=== PATIENT | female | born 1980 | race Caucasian/White ===

== ENCOUNTER 2016-06-23 08:48 | Emergency (ER) | payer BC ==
[~2016-06-23] VITALS: Ht 165.1 cm; Wt 82.0 kg
[~2016-06-23 08:48] MED LIST: BCPILLS PO
[2016-06-23 08:50] VITALS: TEMP 36.5; Ht 165.1 cm; Wt 82.0 kg
[2016-06-23] MEDS ORDERED: PROMETHAZINE HCL INJ 12.5 MG in SODIUM CHLORIDE 0.9% 50ML 50 ML IV STA (09:10)
[2016-06-23] MEDS ORDERED: SODIUM CHLORIDE 0.9% 1000ML 1,000 ML IV STA (09:10)
[2016-06-23] MEDS ORDERED: KETOROLAC TROMETHAMINE 30 MG/ML VIAL IV STA (09:10)
[2016-06-23] MEDS ORDERED: ONDANSETRON INJ 2 MG/ML 2 ML VIAL IV STA (09:10)
[2016-06-23] MEDS ORDERED: DEXAMETHASONE SOD INJ 10 MG/ML VIAL IV ONE (09:15)
[2016-06-23] MEDS ORDERED: DiphenhydrAMINE HCL 50 MG/ML VIAL IV STA (10:33)
[2016-06-23] MEDS ORDERED: MoRPHine SULFATE 4 MG/ML 1 ML CARP\\VIAL IV STA (10:33)
[2016-06-23] MEDS ORDERED: ONDA4TAB10 SL (11:16)
[2016-06-23] MEDS ORDERED: PROM25TA9 PO (11:16)
[2016-06-23] MEDS ORDERED: HYDR-5688 PO (11:16)
--- NOTE | 2016-06-23 11:17 | EMERGENCY ROOM VISIT NOTE ---
ED Visit Note First contact with patient: 09:01 CHIEF COMPLAINT: Migraine headache since this morning HISTORY OF PRESENT ILLNESS: Patient is a 35-year-old white female with history of migraine headaches who presents to the emergency department accompanied by her sister for evaluation of a headache that started this morning. She noted that she had a little bit of a visual aura before she went to bed last night, but states that she woke up with a throbbing, generalized headache, with associated nausea, vomiting and photophobia. She tried taking Maxalt 2, but vomited. She presently rates her pain a 9/10. She has not been ill with any cold or upper respiratory symptoms, fever or chills recently. She denies weakness or numbness of the extremities. There is no difficulty with balance, coordination, speech or vision. No trauma to the head and no neck pain. She does report a history of migraines but states that they have generally been well controlled. She has not been to the ER for migraine for some time. REVIEW OF SYSTEMS: Review of systems as per HPI. All other systems reviewed were negative. 10 systems reviewed. PMH: Electronic medical records are reviewed and summarized as above/below. See Problem List. SOCIAL HISTORY: Patient lives at home with her and children. Employed. Nonsmoker. PHYSICAL EXAM: Vital Signs: Reviewed Nurse's notes. General Appearance: Patient is a tearful, uncomfortable-appearing 35-year-old white female who is awake and alert and laying in a darkened room in moderate distress due to her pain, nausea and vomiting. Eyes: Pupils equal round reactive to light extraocular muscles are intact, no proptosis, marked photophobia noted ENT: Oropharynx is clear, mucous membranes are moist, tympanic membranes are clear bilaterally, no sinus or dental tenderness Neck: Supple, no cervical lymphadenopathy, no meningismus Heart: Regular rate and rhythm, S1 and S2 Lungs: Clear to auscultation bilaterally, no wheezes Rales or rhonchi, no increased work of breathing Abdomen: Soft nontender nondistended. Normal active bowel sounds. No rebound. No guarding. Back: No midline tenderness to palpation. : No CVA tenderness to palpation. Skin: Warm, no diaphoresis, no rashes. Extremities: No cyanosis, clubbing, or edema Neurologic: Patient is awake alert, and oriented x 3. Cranial nerves 2-12 are grossly intact. Motor 5 out of 5 strength bilateral upper extremities and lower extremities. No gross sensory deficits. Reflexes are 2+ throughout. EMERGENCY DEPARTMENT COURSE: The patient was seen and evaluated as above. Her old records are reviewed. Treatment regimens were discussed with her, and she was in agreement. IV access was obtained. She was hydrated with normal saline solution and initially was medicated with Zofran 4 mg, Toradol 30 mg, Phenergan 12.5 mg and Decadron 10 mg IV. She was reassessed, and reported slight improvement of her headache, but noted that it worsened and began to drop again when she got up to use the restroom. She was given morphine 4 mg and Benadryl 25 mg IV. Patient was reassessed after the morphine and Benadryl and reported that her headache was a 2/10, she felt better, declined any additional medications and felt well enough to be discharged home to rest. She presents today with a severe migraine, with a long-standing history of migraines. She does not have any worrisome physical exam findings and has a benign neurologic exam. It was not felt that advanced neuro imaging with a CT or an MRI was indicated. I discussed this with her and she was in agreement. She was given a prescription for Tomball, Zofran and Phenergan to have at home, but certainly advised to return to the emergency department at any point if her symptoms are worsening. I discussed with her that she might require additional workup should she need to return and she expressed understanding of this. She rated her discomfort a 0 /10 at discharge. Her sister was driving. Differential includes: acute intracranial bleed, meningitis, encephalitis, mass or mass effect, sinusitis, infection, migraine, tumor, headache, temporal arteritis and carbon monoxide exposure. Problem List Medical Problems: (1) Migraine Unspecified W/O Intractable Migraine Status: Chronic Current/Historical Medications Scheduled PRN Hydrocodone/Acetaminophen 5MG/325MG (Tomball 5MG/325MG), 1 TABLET PO Q4 PRN for Pain Ondasetron Odt (Zofran Odt), 4 MG SL Q4 PRN for Nausea or Vomiting Promethazine Hcl (Phenergan), 25 MG PO Q4H PRN for Nausea Allergies Coded Allergies: Acetaminophen (Unverified Allergy, Intermediate, ITCHING, 06/23/16) Oxycodone (Unverified Allergy, Intermediate, ITCHING, 06/23/16) Prochlorperazine (Unverified Adverse Reaction, Intermediate, JUMPY, CAN'T SIT STILL., 06/23/16) Vital Signs Date Time Temp Pulse Resp B/P Pulse Ox O2 Delivery O2 Flow Rate FiO2 06/23/16 11:38 85 18 121/78 98 06/23/16 10:51 89 18 118/76 99 Room Air 06/23/16 08:50 36.5 68 18 148/92 100 Room Air Medications Administered Medications (Trade) Dose Ordered Sig/Callum Route Start Time Stop Time Status Last Admin Dose Admin Sodium Chloride (Nss 1000ml) 1,000 ml @ 999 mls/hr Q1H1M STAT IV 06/23/16 09:10 06/23/16 10:10 DC 06/23/16 09:34 999 MLS/HR Ondansetron HCl (Zofran Inj) 4 mg NOW STAT IV 06/23/16 09:10 06/23/16 09:21 DC 06/23/16 09:35 4 MG Ketorolac Tromethamine 30 mg 30 mg NOW STAT IV 06/23/16 09:10 06/23/16 09:21 DC 06/23/16 09:34 30 MG Promethazine HCl/ Sodium Chloride (Phenergan Inj/ Nss 50ml) 50.5 ml @ 204 mls/hr NOW STAT IV 06/23/16 09:10 06/23/16 09:24 DC 06/23/16 09:34 204 MLS/HR Dexamethasone Sodium Phosphate (Decadron Inj) 10 mg NOW ONCE IV 06/23/16 09:15 06/23/16 09:21 DC 06/23/16 09:35 10 MG Morphine Sulfate (MoRPHine SULFATE INJ) 4 mg NOW STAT IV 06/23/16 10:33 06/23/16 10:35 DC 06/23/16 10:48 4 MG Diphenhydramine HCl (Benadryl Inj) 25 mg NOW STAT IV 06/23/16 10:33 06/23/16 10:35 DC 06/23/16 10:48 25 MG Departure Information Impression Primary Impression: Migraine Prescriptions Promethazine Hcl (Phenergan) 25 Mg Tab 25 MG PO Q4H Y for Nausea, #20 TAB Prov: Vanessa Upton PA 06/23/16 Ondasetron Odt (ZOFRAN ODT) 4 Mg Tab 4 MG SL Q4 Y for Nausea or Vomiting, #20 TAB Prov: Vanessa Upton PA 06/23/16 Hydrocodone/Acetaminophen 5MG/325MG (Tomball 5MG/325MG) Tab 1 TABLET PO Q4 Y for Pain, #10 TAB For Initial Treatment Prov: Vanessa Upton PA 06/23/16 Referrals Christianne Cullen M.D. (PCP) Patient Instructions A Signature Page, My [facility] Additional Instructions DO NOT drive, drink alcohol, operate machinery, or perform dangerous activities today. You were given medications in the ER that can affect your ability to safely function or operate a vehicle. Hydrocodone/Acetaminophen (Tomball) 5/325 mg: Take 1-2 pills every four hours for breakthrough pain. Avoid alcohol, operating machinery or dangerous equipment, working on ladders or roofs, DRIVING, or situations where being under the influence may be dangerous. It is recommended to use an hujv-iyh-akpoifj stool softener such as Colace, 100mg twice daily while taking this medication to avoid constipation. DO NOT drive, drink alcohol, operate machinery, or perform dangerous activities today. You were given medications in the ER that can affect your ability to safely function or operate a vehicle. Rest today in a quiet, peaceful, dark environment and get a full 8-10 hrs of sleep tonight. Avoid loud noises, smoke/smoking, alcohol, bright lights, stress, or physical exertion today to minimize the chance the headache may return. Continue current medications. Ibuprofen(Motrin, Advil) may be used for fever or pain. Use 600mg every six hours as needed. Take with food. Avoid using more than 2400mg in a 24 hour period. Do not use 2400mg per day for more than three consecutive days without physician direction. Prolonged inappropriate use can lead to stomach upset or ulcers. (AND/OR) Acetaminophen(Tylenol) may be used for fever or pain. Use 1000mg every six hours as needed. Avoid using more than 3000mg in a 24 hour period. Return to the ER for passing out, worsening headache, vision problems, neck stiffness/pain, fevers, vomiting, worsening of your condition, or as needed. Follow up with your primary physician in 2-3 days for a recheck of your current condition.
[2016-06-23 11:38] VITALS: BP 121/78; PULSE 85; O2SAT 98
== END 2016-06-23 11:39 | disposition home or self-care (01) ==
LOC: C.EDB 08:50
DX: G43.909 Migraine, unspecified, not intractable, without status migrainosus (principal); Z88.5 Allergy status to narcotic agent; Z88.6 Allergy status to analgesic agent; Z88.8 Allergy status to other drugs, medicaments and biological substances

== ENCOUNTER 2017-09-06 06:12 | Emergency (ER) | payer BC, OTHER ==
[~2017-09-06] VITALS: Ht 160 cm; Wt 86.5 kg
[2017-09-06 06:17] VITALS: TEMP 36.8; Ht 160 cm; Wt 86.5 kg
--- NOTE | 2017-09-06 06:34 | EMERGENCY ROOM VISIT NOTE ---
History Report prepared by Sandra: Didier Westbrook Under the Supervision of: Dr. Daren Crockett M.D. First contact with patient: 06:25 Chief Complaint: KNEEPAIN Stated Complaint: FELL AND BANGED UP RIGHT KNEE History of Present Illness The patient is a 36 year old female who presents to the Emergency Room with complaints of a sudden mechanical fall that occurred earlier this morning. She states that she was running on the road, and fell. The patient says that she only hurt her right knee on the fall, and it is bleeding. She notes that it hurts to walk on the right knee, but she denies any other symptoms, other than numbness around the skin flaps. The patient specifically denies any hip pain. She states that she has no history of bleeding problems. The patient says that her last tetanus shot was in either 2009 or 2011 when her children were born. Source of History: patient Onset: Earlier this morning Position: knee (right) Symptom Intensity: hurts to walk on knee Quality: other (injured from fall) Timing: other (sudden) Modifying Factors (Worsening): other (walking) Associated Symptoms: + numbness (around skin flaps) Note: Associated symptoms: Bleeding from right knee. Denies hip pain or any other injuries. Review of Systems See HPI for pertinent positives & negatives. A total of 6 systems reviewed and were otherwise negative. Past Medical & Surgical Medical Problems: (1) Migraine Unspecified W/O Intractable Migraine Family History FH: lung disease FHx: cancer FHx: heart disease Hypertension Social History Smoking Status: Never Smoker Drug Use: none Marital Status: in relationship Housing Status: lives with family Occupation Status: employed Current/Historical Medications Scheduled Cholecalciferol (Vitamin D3), 1 TAB PO DAILY Magnesium Oxide (Mag-Ox), 400 MG PO DAILY Miscellaneous Medications Riboflavin (Vitamin B-2) Allergies Coded Allergies: Acetaminophen (Verified Allergy, Intermediate, ITCHING, 09/06/17) Oxycodone (Verified Allergy, Intermediate, ITCHING, 09/06/17) Prochlorperazine (Verified Adverse Reaction, Intermediate, JUMPY, CAN'T SIT STILL., 09/06/17) Physical Exam Vital Signs Date Time Temp Pulse Resp B/P (MAP) Pulse Ox O2 Delivery O2 Flow Rate FiO2 09/06/17 07:13 72 18 141/89 96 09/06/17 06:17 36.8 80 17 138/92 96 Room Air Physical Exam GENERAL: Patient is well appearing and in minimal distress. EXTREMITIES: Full range of motion. No tenderness to palpation of right knee except over abrasion. No foreign bodies appreciated. NEUROLOGIC: Alert and oriented, no acute motor or sensory deficits, no focal weakness, cranial nerves grossly intact. SKIN: Extensive road rash of anterior right knee. Multiple skin flaps, discolored without cap refill. No sensation in skin flaps. Medical Decision & Procedures Medications Administered Medications (Trade) Dose Ordered Sig/Callum Route Start Time Stop Time Status Last Admin Dose Admin Diphtheria/ Pertussis/Tetanus Vacc (Adacel Inj) 0.5 ml ONCE ONCE IM. 09/06/17 07:00 09/06/17 07:01 DC 09/06/17 07:10 0.5 ML ED Course 0628: The patient was evaluated in room A4B. A complete history and physical exam was performed. 0653: Reevaluated the patient. Discussed results and discharge instructions: she verbalized understanding and agreement. The patient is ready for discharge. Medical Decision 36 yr old female with right knee abrasion s/p fall while running this morning. Macerated abrasion with multiple non-viable skin flaps that are dirty. I debrided this where skin was and flapping. Given location and amount of lost tissue no way to bring together with sutures. No FB noted on extensive scrubbing. No criteria for imaging. Discussed wound care and monitoring. Tetanus updated. Medication Reconcilliation Current Medication List: was personally reviewed by me Blood Pressure Screening Patient's blood pressure: Elevated blood pressure Blood pressure disposition: Elevated BP felt to be situational Impression Primary Impression: Abrasion, right knee, initial encounter Additional Impressions: Avulsion of skin Encounter for wound care Ufghzufodi-pnoqkxw-riwppjqka (DTP) vaccination Scribe Attestation The scribe's documentation has been prepared under my direction and personally reviewed by me in its entirety. I confirm that the note above accurately reflects all work, treatment, procedures, and medical decision making performed by me. Departure Information Dispostion Home / Self-Care Referrals Christianne Cullen M.D. (PCP) Patient Instructions ED Abrasion, My [facility] [address] Problem Qualifiers
[2017-09-06] MEDS ORDERED: XYLOCAINE 1%/SOD BICARB 20 ML VIAL INFIL ONE (06:45)
[2017-09-06] MEDS ORDERED: DIPHTHERIA/TETANUS/PERTUSSIS 0.5 ML SYR/VIAL IM. ONE (07:00)
[2017-09-06] MEDS ORDERED: VITB2100 (07:05)
[2017-09-06] MEDS ORDERED: CHOL1000 PO (07:05)
[2017-09-06] MEDS ORDERED: MAGN400T6 PO (07:05)
[2017-09-06 07:13] VITALS: BP 141/89; PULSE 72; O2SAT 96
== END 2017-09-06 07:14 | disposition home or self-care (01) ==
LOC: C.EDB 06:13 → C.EDA 07:14
DX: S80.211A Abrasion, right knee, initial encounter (principal); S81.001A Unspecified open wound, right knee, initial encounter; W19.XXXA Unspecified fall, initial encounter; Z82.49 Family history of ischemic heart disease and other diseases of the circulatory system; Z88.5 Allergy status to narcotic agent; Z88.8 Allergy status to other drugs, medicaments and biological substances; Z48.00 Encounter for change or removal of nonsurgical wound dressing; Z23 Encounter for immunization